=== PATIENT | female | born 1990 | race Caucasian/White ===

== ENCOUNTER 2018-01-20 13:14 | Outpatient (CLI) | payer OTHER ==
[2018-01-20 15:08] LABS: ADD MAN DIFF? NO
[2018-01-20 15:17] LABS: ABNORMAL IP MESSAGE 1; BASOPHILS % 0.3 % (0.0-2.0); EOSINOPHILS # 0.1 10^3/ul (0.0-0.5); EOSINOPHILS % 0.6 % (0.0-7.0); HEMATOCRIT 32.3 % (37.0-47.0); HEMOGLOBIN 10.5 g/dl (12.0-16.0); LYMPHOCYTES # 1.8 10^3/ul (0.8-2.9); LYMPHOCYTES % 19.8 % (15.0-51.0); MEAN CORPUSCULAR HEMOGLOBIN 27.6 pg (29.0-33.0); MEAN CORPUSCULAR HGB CONC 32.5 g/dl (32.0-37.0); MEAN PLATELET VOLUME 13.1 fl (7.4-10.4); MONOCYTE # 0.7 10^3/ul (0.3-0.9); MONOCYTES % 7.7 % (0.0-11.0); NEUTROPHIL # 6.6 10^3/ul (1.6-7.5); NEUTROPHILS % 71.2 % (39.0-77.0); PLATELET COUNT 160 10^3/UL (140-415); RED CELL DISTRIBUTION WIDTH 12.2 % (11.5-14.5)
[2018-01-20 15:17] LABS: WHITE BLOOD COUNT 9.3 10^3/ul (4.8-10.8)
[2018-01-20 15:22] LABS: POSITIVE DIFF @See below
[2018-01-20 15:33] LABS: ALANINE AMINOTRANSFERASE 13 IU/L (13-69); ALBUMIN 3.2 g/dl (3.3-4.9); ALBUMIN/GLOBULIN RATIO 1.03; ALKALINE PHOSPHATASE 194 IU/L (42-121); ANION GAP 10 (5-13); ASPARTATE AMINO TRANSFERASE 19 IU/L (15-46); BILIRUBIN,INDIRECT 0.2 mg/dl (0-1.1); BILIRUBIN,TOTAL 0.2 mg/dl (0.2-1.3); BLOOD UREA NITROGEN 9 mg/dl (7-20); CALCIUM 8.8 mg/dl (8.4-10.2); CARBON DIOXIDE 23 mmol/L (21-31); CHLORIDE 107 mmol/L (97-110); CREATININE 0.55 mg/dl (0.44-1.00); Estimated GFR > 60 mL/min (>60); GLUCOSE 85 mg/dl (70-220); POTASSIUM 3.8 mmol/L (3.5-5.1); SODIUM 140 mmol/L (135-144); TOTAL PROTEIN 6.3 g/dl (6.1-8.1); URIC ACID 4.4 mg/dl (3.1-7.9)
[2018-01-20 16:34] LABS: ADD UMIC YES; UR ASCORBIC ACID NEGATIVE (NEGATIVE); UR BACTERIA FEW /HPF (NONE SEEN); UR BILIRUBIN (Dip) NEGATIVE (NEGATIVE); UR BLOOD (Dip) NEGATIVE (NEGATIVE); UR CLARITY SLIGHTLY CLOUDY (CLEAR); UR COLOR YELLOW (YELLOW); UR GLUCOSE (Dip) NEGATIVE (NEGATIVE); UR KETONES (Dip) NEGATIVE (NEGATIVE); UR LEUKOCYTE ESTERASE (Dip) 3+ Leu/ul (NEGATIVE); UR NITRITE (Dip) NEGATIVE (NEGATIVE); UR RBC 4 /HPF (0-5); UR SPECIFIC GRAVITY (Dip) 1.008 (1.003-1.030); UR SQUAMOUS EPITHELIAL CELL FEW /HPF (FEW); UR TOTAL PROTEIN (Dip) NEGATIVE (NEGATIVE); UR UROBILINOGEN (Dip) NEGATIVE (NEGATIVE); UR WBC 20 /HPF (0-5)
[2018-01-20 16:45] LABS: ANISOCYTOSIS 1+ (0-0); BAND NEUTROPHILS #M 0.2 10^3/ul (0.0-0.6); BAND NEUTROPHILS % (M) 3 % (0-4); GIANT THROMBO% (M) 2 % (0-0); LYMPHOCYTES #M 0.9 10^3/ul (0.8-2.9); LYMPHOCYTES % (M) 10 % (15-51); MICROCYTOSIS 1+ (0-0); MONOCYTE #M 0.5 10^3/ul (0.3-0.9); MONOCYTES % (M) 6 % (0-11); PLATELET ESTIMATE NORMAL; POLYCHROMASIA 3+ (0-0); REACTIVE LYMPHOCYTES% (M) 1 % (0-0); SEG NEUT #M 7.5 10^3/ul (1.6-7.5); SEGMENTED NEUTROPHILS (M) % 80 % (39-77); SMUDGE%M 3 % (0-0)
== END 2018-01-20 17:47 | disposition home or self-care (01) ==
LOC: OBT 13:14 → L-D 13:14 → OBT 17:47
DX: O26.893 Other specified pregnancy related conditions, third trimester (principal); R03.0 Elevated blood-pressure reading, without diagnosis of hypertension; O23.43 Unspecified infection of urinary tract in pregnancy, third trimester; Z3A.31 31 weeks gestation of pregnancy
CPT/HCPCS: 76815; 76817; 80053; 81001; 84560; 85025

== ENCOUNTER 2018-03-02 11:32 | Inpatient (IN) | payer OTHER ==
[2018-03-02] MEDS ORDERED: METHYLERGONOVINE 0.2 MG INJ IM (12:00)
[2018-03-02] MEDS ORDERED: MISOPROSTOL 200 MCG TAB PR (12:00)
[2018-03-02] MEDS ORDERED: OXYTOCIN 30 UNITS/LR 500 ML IV ×2 (12:00)
[2018-03-02] MEDS ORDERED: CARBOPROST 250 MCG INJ IM (12:00)
[2018-03-02] MEDS ORDERED: MAGNESIUM SULFATE 20 GM/500 ML 500 ML IV (12:18)
[2018-03-02] MEDS ORDERED: MAGNESIUM SULFATE 4 GM/100 ML 100 ML (12:18)
[2018-03-02] MEDS: MAGNESIUM SULFATE 4 GM/100 ML 100 ML IV (12:40)
[2018-03-02] MEDS: LACTATED RINGER'S 1,000 ML IV ×2 (12:40→21:57)
[2018-03-02 12:45] LABS: ADD MAN DIFF? NO
[2018-03-02 12:50] LABS: WHITE BLOOD COUNT 7.6 10^3/ul (4.8-10.8)
[2018-03-02 12:50] LABS: ABNORMAL IP MESSAGE 1; BASOPHIL # 0.1 10^3/ul (0.0-0.1); BASOPHILS % 0.7 % (0.0-2.0); EOSINOPHILS # 0.1 10^3/ul (0.0-0.5); EOSINOPHILS % 0.8 % (0.0-7.0); HEMATOCRIT 34.4 % (37.0-47.0); HEMOGLOBIN 10.8 g/dl (12.0-16.0); LYMPHOCYTES # 2.1 10^3/ul (0.8-2.9); LYMPHOCYTES % 27.7 % (15.0-51.0); MEAN CORPUSCULAR HEMOGLOBIN 26.7 pg (29.0-33.0); MEAN CORPUSCULAR HGB CONC 31.4 g/dl (32.0-37.0); MEAN CORPUSCULAR VOLUME 84.9 fl (82.0-101.0); MEAN PLATELET VOLUME 14.4 fl (7.4-10.4); MONOCYTE # 0.6 10^3/ul (0.3-0.9); MONOCYTES % 8.1 % (0.0-11.0); NEUTROPHIL # 4.7 10^3/ul (1.6-7.5); NEUTROPHILS % 61.5 % (39.0-77.0); NUCLEATED RED BLOOD CELLS% 0.3 /100WBC (0.0-0.0); PLATELET COUNT 103 10^3/UL (140-415); RED BLOOD COUNT 4.05 10^6/ul (4.20-5.40); RED CELL DISTRIBUTION WIDTH 13.8 % (11.5-14.5)
[2018-03-02 12:54] LABS: POSITIVE DIFF @See below
[2018-03-02 13:04] LABS: ADD UMIC YES; UR ASCORBIC ACID NEGATIVE (NEGATIVE); UR BILIRUBIN (Dip) NEGATIVE (NEGATIVE); UR BLOOD (Dip) NEGATIVE (NEGATIVE); UR CLARITY SLIGHTLY CLOUDY (CLEAR); UR COLOR YELLOW (YELLOW); UR GLUCOSE (Dip) NEGATIVE (NEGATIVE); UR KETONES (Dip) NEGATIVE (NEGATIVE); UR LEUKOCYTE ESTERASE (Dip) 3+ Leu/ul (NEGATIVE); UR NITRITE (Dip) NEGATIVE (NEGATIVE); UR RBC 4 /HPF (0-5); UR SPECIFIC GRAVITY (Dip) 1.014 (1.003-1.030); UR SQUAMOUS EPITHELIAL CELL FEW /HPF (FEW); UR TOTAL PROTEIN (Dip) 2+ mg/dl (NEGATIVE); UR UROBILINOGEN (Dip) NEGATIVE (NEGATIVE); UR WBC 11 /HPF (0-5)
[2018-03-02] MEDS: MAGNESIUM SULFATE 20 GM/500 ML 500 ML IV ×2 (13:11→22:12)
[2018-03-02 13:14] LABS: INR 0.87; PARTIAL THROMBOPLASTIN TIME 27.4 Sec (23.0-35.0); PROTIME 11.9 Sec (11.9-14.9); PT RATIO 0.9
[2018-03-02 13:20] LABS: ALANINE AMINOTRANSFERASE 27 IU/L (13-69); ALBUMIN 3.1 g/dl (3.3-4.9); ALBUMIN/GLOBULIN RATIO 0.93; ALKALINE PHOSPHATASE 340 IU/L (42-121); ANION GAP 6 (5-13); ASPARTATE AMINO TRANSFERASE 36 IU/L (15-46); BILIRUBIN,INDIRECT 0.1 mg/dl (0-1.1); BILIRUBIN,TOTAL 0.1 mg/dl (0.2-1.3); BLOOD UREA NITROGEN 11 mg/dl (7-20); CALCIUM 8.4 mg/dl (8.4-10.2); CARBON DIOXIDE 22 mmol/L (21-31); CHLORIDE 108 mmol/L (97-110); CREATININE 0.63 mg/dl (0.44-1.00); Estimated GFR > 60 mL/min (>60); GLUCOSE 72 mg/dl (70-220); POTASSIUM 4.4 mmol/L (3.5-5.1); SODIUM 136 mmol/L (135-144); TOTAL PROTEIN 6.4 g/dl (6.1-8.1); URIC ACID 6.3 mg/dl (3.1-7.9)
[2018-03-02 15:42] LABS: RAPID PLASMA REAGIN NONREACTIVE (NR)
[2018-03-02] MEDS ORDERED: MISOPROSTOL 50 MCG CAPSULE VAG (16:00)
[2018-03-02] MEDS: MISOPROSTOL 50 MCG CAPSULE PO ×2 (17:52→21:59)
[2018-03-02] MEDS: AMPICILLIN 2 GM/NS (PMX) 100 ML IV (17:52)
[2018-03-02 20:15] LABS: MAGNESIUM 6.7 mg/dl (1.7-2.5)
[2018-03-02 21:43] LABS: HEPATITIS B SURFACE ANTIGEN NEGATIVE (NEGATIVE)
[2018-03-02] MEDS: AMPICILLIN 1 GM/NS (PMX) 50 ML IV (21:59)
[2018-03-03] MEDS: LACTATED RINGER'S 1,000 ML IV ×2 (00:46→15:45)
[2018-03-03] MEDS: AMPICILLIN 1 GM/NS (PMX) 50 ML IV ×4 (00:47→08:00)
[2018-03-03 01:46] LABS: MAGNESIUM 7.4 mg/dl (1.7-2.5)
[2018-03-03] MEDS: MISOPROSTOL 50 MCG CAPSULE PO (01:57)
[2018-03-03 03:56] LABS: MAGNESIUM 5.5 mg/dl (1.7-2.5)
[2018-03-03] MEDS: OXYTOCIN 30 UNITS/LR 500 ML IV ×2 (06:53→09:03)
[2018-03-03 07:13] LABS: MAGNESIUM 6.7 mg/dl (1.7-2.5)
[2018-03-03] MEDS: BUTORPHANOL 2 MG INJ IV (08:15)
[2018-03-03] MEDS: IBUPROFEN 600 MG TAB PO ×2 (10:20→18:07)
[2018-03-03] MEDS: LIDOCAINE 1% (MPF) 30 ML INJ INJ ×2 (10:21→10:57)
[2018-03-03] MEDS: LABETALOL HCL 20MG INJ IV ×2 (10:45→12:30)
[2018-03-03] MEDS: MAGNESIUM SULFATE 20 GM/500 ML 500 ML IV ×3 (11:19→21:20)
[2018-03-03] MEDS ORDERED: MAGNESIUM SULFATE 20 GM/500 ML 500 ML IV (11:45)
[2018-03-03] MEDS ORDERED: NACL 0.9% 3 ML SYG IV ×2 (12:00→12:30)
[2018-03-03] MEDS ORDERED: CA GLUCONATE (GM) 10% 10ML INJ IV ×2 (12:00→12:30)
[2018-03-03] MEDS ORDERED: MAGNESIUM SULFATE 4 GM/100 ML 100 ML IV (12:00)
[2018-03-03] MEDS ORDERED: OXYTOCIN 30 UNITS/LR 500 ML IV ×2 (12:28→12:30)
[2018-03-03] MEDS ORDERED: MISOPROSTOL 200 MCG TAB PR (12:30)
[2018-03-03] MEDS ORDERED: ONDANSETRON 4 MG INJ IV (12:30)
[2018-03-03] MEDS ORDERED: ZOLPIDEM 5 MG TAB PO (12:30)
[2018-03-03] MEDS ORDERED: LABETALOL HCL 20MG INJ IV ×2 (12:30)
[2018-03-03] MEDS ORDERED: CARBOPROST 250 MCG INJ IM (12:30)
[2018-03-03] MEDS ORDERED: DIPHENHYDRAMINE 25 MG CAP PO (12:30)
[2018-03-03] MEDS ORDERED: hydrALAzine 20 MG INJ IV (12:30)
[2018-03-03 13:45] LABS: ALANINE AMINOTRANSFERASE 29 IU/L (13-69); ALBUMIN 3.4 g/dl (3.3-4.9); ALKALINE PHOSPHATASE 431 IU/L (42-121); ANION GAP 8 (5-13); ASPARTATE AMINO TRANSFERASE 44 IU/L (15-46); BLOOD UREA NITROGEN 10 mg/dl (7-20); CALCIUM 7.8 mg/dl (8.4-10.2); CARBON DIOXIDE 24 mmol/L (21-31); CHLORIDE 101 mmol/L (97-110); CREATININE 0.93 mg/dl (0.44-1.00); GLUCOSE 89 mg/dl (70-220); LACTATE DEHYDROGENASE 679 IU/L (313-618); PHOSPHORUS 4.1 mg/dl (2.5-4.9); POTASSIUM 4.5 mmol/L (3.5-5.1); SODIUM 133 mmol/L (135-144); TOTAL PROTEIN 6.8 g/dl (6.1-8.1)
[2018-03-03 13:55] LABS: MAGNESIUM 6.7 mg/dl (1.7-2.5)
[2018-03-03] MEDS: WITCH HAZEL/GLYCERIN PAD PR (18:07)
[2018-03-03] MEDS: LANOLIN HPA 1 PKT TOP (18:07)
[2018-03-03] MEDS: SENNA/DOCUSATE NA (8.6MG/50MG) TAB PO ×2 (19:58→21:14)
[2018-03-03] MEDS: HYDROCODONE/APAP (5/325) TAB PO (21:31)
[2018-03-04] MEDS: IBUPROFEN 600 MG TAB PO ×5 (00:29→23:31)
[2018-03-04 01:26] LABS: MAGNESIUM 7.7 mg/dl (1.7-2.5)
[2018-03-04] MEDS: LABETALOL 100 MG TAB PO ×3 (02:19→21:15)
[2018-03-04] MEDS: PHENOBARBITAL 32.4 MG TAB PO ×4 (02:43→21:14)
[2018-03-04] MEDS: LACTATED RINGER'S 1,000 ML IV (03:29)
[2018-03-04] MEDS: HYDROCODONE/APAP (5/325) TAB PO (05:57)
[2018-03-04 07:31] LABS: HEMATOCRIT 29.9 % (37.0-47.0); HEMOGLOBIN 9.5 g/dl (12.0-16.0)
[2018-03-04] MEDS: SENNA/DOCUSATE NA (8.6MG/50MG) TAB PO ×2 (09:07→21:00)
[2018-03-04 22:57] LABS: RHOGAM PROFILE 1 1
[2018-03-05] MEDS: LACTATED RINGER'S 1,000 ML IV (04:28)
[2018-03-05] MEDS: IBUPROFEN 600 MG TAB PO ×2 (05:27→12:23)
[2018-03-05] MEDS: LABETALOL 200 MG TAB PO (08:13)
[2018-03-05] MEDS: SENNA/DOCUSATE NA (8.6MG/50MG) TAB PO (08:13)
[2018-03-05] MEDS: MEASLES,MUMPS,RUBELLA VACCINE INJ SC* (08:15)
[2018-03-05] MEDS: VARICELLA VACCINE LIVE/PF 1,350 UNIT/0.5 ML ML SC* (08:16)
[2018-03-05] MEDS: DIPHTH/TET/ACEL PERTUSS (ADULT) 0.5 ML VIAL IM* (08:16)
[2018-03-05] MEDS: HYDROCODONE/APAP (5/325) TAB PO (10:26)
== END 2018-03-05 17:14 | disposition home or self-care (01) | DRG 807 ==
LOC: OBT 11:32 → PP1 03-03 12:56 → L-D 11:32 → OBT 12:03 → L-D 12:00
PROC: 10E0XZZ Delivery of Products of Conception, External Approach (ICD-10-PCS; principal; 2018-03-03)
PROC: 0KQM0ZZ Repair Perineum Muscle, Open Approach (ICD-10-PCS; 2018-03-03)
PROC: 0UQGXZZ Repair Vagina, External Approach (ICD-10-PCS; 2018-03-03)
DX: O14.94 Unspecified pre-eclampsia, complicating childbirth (principal); Z37.0 Single live birth; O70.1 Second degree perineal laceration during delivery; Z3A.37 37 weeks gestation of pregnancy
CPT/HCPCS: 76815; 80053; 80069; 80076; 81001; 83615; 83735; 84560; 85014; 85018; 85025; 85362; 85384; 85610; 85730; 86592; 86850; 86870; 86885; 86900; 86901; 87340; 90716; 99464